=== PATIENT | male | born 1960 | race Caucasian/White ===

== ENCOUNTER 2022-05-13 02:06 | Emergency (ER) | payer MEDICARE, MEDICAID ==
[~2022-05-13] VITALS: Ht 175.3 cm; Wt 113.6 kg
[2022-05-13 02:21] VITALS: BP 180/87
== END 2022-05-13 04:57 | disposition left against medical advice (07) ==
LOC: ER 02:07
DX: M25.559 Pain in unspecified hip (principal); Z53.21 Procedure and treatment not carried out due to patient leaving prior to being seen by health care provider

== ENCOUNTER → 2024-12-21 | Day surgery (SDC) | payer MEDICARE ==
[2024-12-21] VITALS (9 sets, daily range): BP systolic 118–153; BP diastolic 71–91; PULSE 46–67; RESP 9–16; TEMP 99; O2SAT 95–98
[~2024-12-21] VITALS: Ht 177.8 cm; Wt 107.4 kg
[~2024-12-21] MED LIST: ASPI-1265 PO; CLOP-32 PO; HYDROcodone/acetaminophen 10/325mg tab PO PRN; HYDROcodone/acetaminophen 5mg/325mg tablet PO PRN; LIDOcaine 1% (10mg/ml) 2ml vial ONE; METF-438 PO; NITR0.4T51 SL; ROSU10TA72 PO; atropine 0.1mg/ml 10ml syringe ONE; clopidogrel 300mg tablet ONE; fentaNYL/PF 50MCG/1 ML 2ML syringe ONE; heparin 1,000unit/ml 10ml vial 10 ML ONE; iohexol 350 MG/ML 50ML vial IV ONE; iohexol 350MG/ML 100ml bottle IV ONE; midazolam 1 mg/ML 2ml injection ONE; nitroGLYCERIN 500mcg/5mL D5W 5 ML IV ONE; ondansetron/PF 4mg/2ml inj IV PRN; phenylephrine 10mg/ml inj. ONE; proCHLORperazine 10 MG/2 ml inj IV PRN; verapamil 2.5 mg/ml inj IV ONE
--- NOTE | 2024-12-21 06:51 | ELECTROCARDIOGRAPH REPORT ---
[facility] Test Date: 2024-12-21 Test Time: 06:49:09 Pat Name: PARAG YUEN Department: [facility] Patient ID: [facility]-[id number] Room: Gender: M Hand Paster: : 1960 Requested By: ORACIO CONNELLY Order Number: [id number] Reading MD: Dr. OXANA Ken Measurements Intervals Gray Rate: 59 P: 31 MD: 182 QRS: -21 QRSD: 87 T: 18 QT: 398 QTc: 395 Interpretive Statements Sinus rhythm Borderline left axis deviation Electronically Signed On 12-21-2024 17:57:[address] OXANA Ken Please click the below link to view image of tracing.
[2024-12-21 07:12] LABS: BASOPHILS % (AUTO) 0.7 % (0-1); EOSINOPHILS # (AUTO) 0.1 X10'3 (0-0.9); EOSINOPHILS % (AUTO) 1.8 % (0-6); HEMATOCRIT 42.9 % (42.0-52.0); HEMOGLOBIN 14.5 g/dl (14.0-17.9); LYMPHOCYTES # (AUTO) 1.4 X10'3 (1.1-4.8); LYMPHOCYTES % (AUTO) 22.9 % (21-51); MEAN CORPUSCULAR HEMOGLOBIN 29.7 PG (27.0-31.0); MEAN CORPUSCULAR HGB CONC 33.8 g/dL (33.0-36.5); MEAN CORPUSCULAR VOLUME 87.9 FL (78-98); MEAN PLATELET VOLUME 9.4 FL (7.4-10.4); MONOCYTES # (AUTO) 0.4 X10'3 (0-0.9); NEUTROPHILS # (AUTO) 4.1 X10'3 (1.8-7.7); NEUTROPHILS % (AUTO) 68.6 % (42-75); PLATELET COUNT 173 X10'3 (140-440); RED BLOOD COUNT 4.88 X10'6 (4.70-6.10); RED CELL DISTRIBUTION WIDTH 13.2 % (11.5-14.5); WHITE BLOOD COUNT 5.9 X10'3 (4.5-11.0)
[2024-12-21 07:21] LABS: ALBUMIN 4.4 G/DL (3.4-5.0); ANION GAP 10 (8-16); BLOOD UREA NITROGEN 22 MG/DL (7-18); BUN/CREATININE RATIO 15.7 (10.0-20.0); CALCIUM 9.9 MG/DL (8.5-10.1); CHLORIDE 106 MMOL/L (99-107); GLUCOSE 128 MG/DL (70-104); MAGNESIUM 2.2 MG/DL (1.5-2.4); POTASSIUM 4.3 MMOL/L (3.5-5.1); SODIUM 143 MMOL/L (135-145); TOTAL CARBON DIOXIDE 27.4 MMOL/L (24-32); eCRCL 56 ML/MIN; eGFR 51 ML/MIN
[2024-12-21 07:32] LABS: INR 1.1 INR; PROTHROMBIN TIME 10.9 SECONDS (9.0-12.0)
[2024-12-21] MEDS: diphenhydrAMINE 25mg capsule PO PRN (07:34)
[2024-12-21] MEDS: normal saline 1,000 ML IV SCH (07:34)
[2024-12-21] MEDS: sodium bicarbonate 1meq/ml syr 150 ML in dextrose 5%-water 1,000 ML IV ONE (07:34)
--- NOTE | 2024-12-21 12:06 | CARDIOLOGY REPORT ---
DATE OF SERVICE: 12/21/2024 DICTATING PHYSICIAN: ORACIO CONNELLY DO CARDIAC CATHETERIZATION REPORT REFERRING PHYSICIAN: Laureano Tejada MD. CLINICAL HISTORY: This 64-year-old man with a positive family history of coronary artery disease, has had one episode of chest pain suggestive of angina. A pharmacologic stress test demonstrated moderate-sized reversible inferior wall ischemia. PROCEDURES PERFORMED: Left heart catheterization. Left ventriculography. Selective coronary arteriography. PTCA/stent placement. 75 minutes conscious sedation and supervision. DESCRIPTION OF PROCEDURE: The patient was sedated with fentanyl and Versed. He was then prepared and draped in the usual manner. The right radial area was infiltrated with 1% lidocaine using a micropuncture set in a standard Seldinger technique. A 6-Kittitian sheath was placed in the radial artery. 5000 units of heparin were given through a peripheral IV. 200 mcg of nitroglycerin and 2.5 mg of verapamil were directly injected into the radial artery. Left heart catheterization and left ventriculography were performed using a 6-Kittitian pigtail catheter. Coronary arteriography was performed using a 6-Kittitian Kimny catheter for the left coronary artery and a 6-Kittitian #4 right Sanjeev catheter for the right coronary artery. PTCA/STENT PLACEMENT: The patient was given an additional 5000 units of heparin. The right coronary was engaged with a 6-Kittitian hockey stick guiding catheter. A ChoICE PT2 guidewire was passed down through a very tight stenosis in the proximal right coronary. The tip was positioned distally. The lesion was first dilated with a 1.2 x 12 mm Brim Stitcher balloon. It was next dilated with a 3 x 15 Trek balloon and then 4 x 15 and 18 x 4 mm Trek balloons. The residual stenosis was covered with a 4 x 18 mm [place] drug-eluting stent deployed at 18 atmospheres. Although the stent appeared to be fully expanded, it was nevertheless postdilated with a 4 x 15 mm NC Trek balloon at 20 atmospheres. Final arteriography was performed. RESULTS: Hemodynamic data: The left ventricular end diastolic pressure was 9 mmHg. There was no gradient across the aortic valve. LEFT VENTRICULOGRAM: The left ventriculogram was technically adequate. Following a series of PVCs, the ejection fraction appeared to be at least 65%. CORONARY ARTERIOGRAPHY: The coronary arteriograms were technically satisfactory. The patient had a right dominant system. LEFT MAIN CORONARY ARTERY: The left main was a large unobstructed vessel trifurcating into the left anterior descending, intermediate, and circumflex coronary arteries. LEFT ANTERIOR DESCENDING CORONARY ARTERY: The LAD was a large transapical vessel with a small first diagonal and a medium-sized second diagonal, both branches taking their origin from the mid LAD. There were no obstructive lesions in the left anterior descending coronary artery. INTERMEDIATE ARTERY: The intermediate was a medium to large unobstructed vessel. CIRCUMFLEX CORONARY ARTERY: The circumflex was a large vessel with a tiny proximal first obtuse marginal, a small more distal second obtuse marginal, and a large bifurcated posterolateral branch. There were no obstructive lesions in the circumflex coronary artery. RIGHT CORONARY ARTERY: The right coronary artery was a large main stem vessel. There was a large posterior descending branch and two small posterolateral branches. Proximally, the right coronary was narrowed by about 95%. PTCA/STENT PLACEMENT: Following balloon angioplasties and stent placement to the proximal right coronary, there was no significant residual stenosis and brisk unrestricted flow distally. CONCLUSIONS: 1. Obstructive coronary artery disease manifested as a 95% proximal stenosis involving the right coronary artery. 2. Successful balloon angioplasty/stent placement directed at the proximal right coronary stenosis. Before and after the intervention, ANJELICA flow was graded as 3. 3. Left ventricular function appears to be normal. The estimated ejection fraction was 65%. RECOMMENDATIONS: Ongoing medical therapy. ORACIO CONNELLY DO TID: [id number] RECEIPT: [id number] JESSE/HAYES MTDD
== END | disposition home or self-care (01) ==
LOC: SSTAY O 06:07
PROVIDERS: ATTEND Internal Medicine Cardiovascular Disease
DX: I25.10 Atherosclerotic heart disease of native coronary artery without angina pectoris (principal); Z79.899 Other long term (current) drug therapy; Z82.49 Family history of ischemic heart disease and other diseases of the circulatory system
CPT/HCPCS: 36415; 80048; 82948; 83735; 85025; 85610; 93005; 93458; 99152; 99153; A6258; A6402; C1725; C1751; C1769; C1874; C1894; C9600; J1644; J2003; J2250; J3010; J3490; J7030; J7070; Q0163; Q9967; Z7610; J0461; J2371